=== PATIENT | male | born 1985 | race Hispanic/Latino ===

== ENCOUNTER 2019-04-20 19:02 | Emergency (ER) | payer BC ==
[~2019-04-20] VITALS: Ht 185.4 cm; Wt 127.0 kg
[2019-04-20] MEDS ORDERED: KETOROLAC TROMETHAMINE 30 MG/ML VIAL IV STA (19:28)
[2019-04-20] MEDS ORDERED: KETOROLAC TROMETHAMINE 30 MG/ML VIAL ONE (19:43)
[2019-04-20] MEDS ORDERED: FAMOTIDINE 20 MG/2 ML VIAL IV ONE (19:43)
[2019-04-20] MEDS ORDERED: FAMOTIDINE 20 MG/2 ML VIAL IV NR (19:45)
--- NOTE | 2019-04-20 20:22 | Diagnostic Imaging Report ---
EXAMINATION: CXR 2 VIEW - HOPD INDICATION: Chest pain, mid-sternal. COMPARISON: None FINDINGS: TUBES and LINES: None. LUNGS: Lungs are well inflated. There is no evidence of pneumonia or pulmonary edema. PLEURA: No pleural effusion or pneumothorax. HEART AND MEDIASTINUM: The cardiomediastinal silhouette is unremarkable. BONES AND SOFT TISSUES: No acute osseous abnormality. UPPER ABDOMEN: No free air under the diaphragm. IMPRESSION: No acute radiographic abnormality. Signed by: Dr. Omer Mendoza MD on 04/20/2019 8:19 PM
--- NOTE | 2019-04-20 21:22 | Diagnostic Imaging Report ---
History: Neck pain Comparison studies: None Technique: Axial images were obtained through the cervical region. Coronal and sagittal images reconstructed from the axial data. Intravenous contrast: None Dose modulation, iterative reconstruction, and/or weight based adjustment of the mA/kV was utilized to reduce the radiation dose to as low as reasonably achievable. Findings: Atlantoaxial articulation: Intact Alignment: Reversal of the normal lordosis. No scoliosis. Cervicomedullary junction: No abnormalities. Patent foramen magnum. Soft tissues: No gross abnormalities. Vertebrae: No fractures, neoplasm or infection. Degenerative changes: No high-grade canal stenosis or foraminal narrowing. IMPRESSION: 1. No acute abnormality of the cervical spine with grossly patent canal and foramina. Signed by: DR Marcelo Quiñones M.D. on 04/20/2019 9:19 PM
[2019-04-20] MEDS ORDERED: PEPCID20 MG PO (21:33)
[2019-04-20] MEDS ORDERED: PREDNISONE20 MG PO (21:34)
[2019-04-20] MEDS ORDERED: NAPROXEN250 MG PO (21:36)
[2019-04-20] MEDS ORDERED: CYCLOBENZAPRINE5 MG PO (21:39)
== END 2019-04-20 21:56 | disposition home or self-care (01) ==
LOC: FSED 19:02
DX: R07.89 Other chest pain (principal); M54.12 Radiculopathy, cervical region; F17.210 Nicotine dependence, cigarettes, uncomplicated
CPT/HCPCS: 71046; 72125; 80053; 82553; 84484; 85025; 93005; 99284; J1885

== ENCOUNTER 2019-08-11 13:46 | Emergency (ER) | payer BC ==
[~2019-08-11] VITALS: Ht 185.4 cm; Wt 127.0 kg
[~2019-08-11 13:46] MED LIST: CYCLOBENZAPRINE5 MG PO; NAPROXEN250 MG PO; PEPCID20 MG PO; PREDNISONE20 MG PO
--- NOTE | 2019-08-11 13:48 | NUR ---
pt not in lobby, stated he had to go to his car per help desk administrator.
--- OUTSIDE RECORDS SUMMARY | 2019-08-11 13:49 | XMS REPORT ---
Author Author [facility] Address Unknown Phone Unavailable Care Team Providers Care Sales Agent [employer] Name Role Phone Kirill CAN Unavailable Unavailable Problems This patient has no known problems. Allergies, Adverse Reactions, Alerts This patient has no known allergies or adverse reactions. Medications This patient has no known medications. Results Test Description Test Time Test Comments Text Results Atomic Results Result Comments CT C-SPINE W/O - HOPD 2019-04-20 21:15:00 [place] [address] Patient Name: TRE HINES MR #: [id number] : 1985 Age/Sex: 33/M Req #: [id number] Adm Physician: Ordered by: CHEVY CAN MD Report #: [id number] Location: [facility] Room/Bed: Procedure: [id number] HOPD/CT C-SPINE W/O - HOPD Exam Date: 04/20/19 Exam Time: 1953 REPORT STATUS: Signed History: Neck pain Comparison studies: None Technique: Axial images were obtained through the cervical region. Coronal and sagittal images reconstructed from the axial data. Intravenous contrast: None Dose modulation, iterative reconstruction, and/or weight based adjustment of the mA/kV was utilized to reduce the radiation dose to as low as reasonably achievable. Findings: Atlantoaxial articulation: Intact Alignment: Reversal of the normal lordosis. No scoliosis. Cervicomedullary junction: No abnormalities. Patent foramen magnum. Soft tissues: No gross abnormalities. Vertebrae: No fractures, neoplasm or infection. Degenerative changes: No high-grade canal stenosis or foraminal narrowing. IMPRESSION: 1. No acute abnormality of the cervical spine with grossly patent canal and foramina. Signed by: DR Marcelo Quiñones M.D. on 04/20/2019 9:19 PM Dictated By: MARCELO KRAMER MD 18 Transcribed By: GILMAR on 04/20/192118 COPY TO: CHEVY CAN MD CXR 2 VIEW - HOPD 2019-04-20 20:09:00 [place] [id number] Patient Name: TRE HINES MR #: [id number] : 1985 Age/Sex: 33/M Req #: [id number] Adm Physician: Ordered by: CHEVY CAN MD Report #: [id number] Location: [facility] Room/Bed: Procedure: [id number] HOPD/CXR 2 VIEW - HOPD Exam Date: 04/20/19 Exam Time: 2001 REPORT STATUS: Signed EXAMINATION: CXR 2 VIEW - HOPD INDICATION: Chest pain, mid-sternal. COMPARISON: None FINDINGS: TUBES and LINES: None. LUNGS: Lungs are well inflated. There is no evidence of pneumonia or pulmonary edema. PLEURA: No pleural effusion or pneumothorax. HEART AND MEDIASTINUM: The cardiomediastinal silhouette is unremarkable. BONES AND SOFT TISSUES: No acute osseous abnormality. UPPER ABDOMEN: No free air under the diaphragm. IMPRESSION: No acute radiographic abnormality. Signed by: Dr. Anaid Lamb MD on 04/20/2019 8:19 PM Dictated By: ANAID LAMB MD 18 Transcribed By: GILMAR on 04/20/192018 COPY TO: CHEVY CAN MD
[2019-08-11] MEDS ORDERED: FAMOTIDINE 20 MG/2 ML VIAL IV STA (14:51)
[2019-08-11] MEDS ORDERED: ONDANSETRON HCL INJ 2MG/ML 2ML 2 MG/ML VIAL IV STA (14:51)
[2019-08-11] MEDS ORDERED: SODIUM CHLORIDE 0.9% 1000ML 1,000 ML IV SCH (15:00)
--- NOTE | 2019-08-11 15:15 | Diagnostic Imaging Report ---
Chest, 2 views, 08/11/2019. History: Chest pain. Comparison: 04/20/2019. Findings: The cardiomediastinal silhouette and pulmonary vasculature are within normal limits. The lungs are clear without evidence of consolidation or pleural effusion. There are no acute osseous or soft tissue abnormalities. Impression: No acute cardiopulmonary abnormality. Signed by: Madhav Loja on 08/11/2019 3:11 PM
[2019-08-11 15:27] LABS: AMPHETAMINES SCREEN,URINE NEGATIVE (NEGATIVE); BENZODIAZEPINES SCREEN,URINE NEGATIVE (NEGATIVE); PHENCYCLIDINE SCREEN,URINE NEGATIVE (NEGATIVE)
[2019-08-11] MEDS ORDERED: POTASSIUM CHLORIDE 20 MEQ TAB CR PO STA (15:45)
[2019-08-11] MEDS ORDERED: ONDANSETRON HCL INJ 2MG/ML 2ML 2 MG/ML VIAL ONE (16:09)
[2019-08-11] MEDS ORDERED: FAMOTIDINE 20 MG/2 ML VIAL IV ONE (16:09)
[2019-08-11 18:19] VITALS: BP 123/67
== END 2019-08-11 18:20 | disposition home or self-care (01) ==
LOC: FSED 13:46
DX: R00.2 Palpitations (principal); R00.0 Tachycardia, unspecified; E87.6 Hypokalemia; K52.9 Noninfective gastroenteritis and colitis, unspecified
CPT/HCPCS: 71046; 80053; 80307; 81003; 82553; 84484; 85025; 93005; 99283; J2405; J7030